=== PATIENT | female | born 1965 | race Caucasian/White ===

== ENCOUNTER 2017-07-28 09:24 | Outpatient (CLI) | payer BC ==
--- NOTE | 2017-07-28 14:10 | MMO ---
BILATERAL SCREENING MAMMOGRAM: Date: 07/28/17 HISTORY: Screening. COMPARISON: Mammograms from 2016 and 2013. TECHNIQUE: Bilateral screening CC and MLO mammograms. This patient's mammogram was interpreted with the assistance of computer-aided detection. FINDINGS: There are scattered fibroglandular densities. Benign-appearing calcifications in the right breast. Th ere are also benign calcifications within the left breast. IMPRESSION: BIRADS 2: Benign Finding(s) Continued annual mammographic screening is recommended. POS: HERB
== END 2017-07-28 09:25 | disposition home or self-care (01) ==
LOC: SCSMAMMO 09:24
PROVIDERS: ATTEND Family Medicine
DX: Z12.31 Encounter for screening mammogram for malignant neoplasm of breast (principal)
CPT/HCPCS: 77067